=== PATIENT | female | born 1965 | race Caucasian/White ===

== ENCOUNTER → 2016-03-12 | Outpatient (CLI) | payer BC ==
[~2016-03-12] MED LIST: ATIVAN 0.50.5 MG/TAB PO; COLACE 100100 MG/CAP PO; GLUCOPHAGE1000 MG PO; GLUCOTROL 5M5 MG/TAB PO; IRON325 M1 PO; MOTRIN 800800 MG/TAB PO; PERCOCET 325 MG1 TA2 PO; PROTONIX 40MG T40 MG PO; VICTOZA6 MG/ML SQ; ZOCOR 20MG20 MG PO; ZOFRAN 4MG T4 MG/TAB PO
== END ==
LOC: SUN.DIA 10:55
DX: E11.65 Type 2 diabetes mellitus with hyperglycemia (principal); Z79.84 Long term (current) use of oral hypoglycemic drugs; E66.8 Other obesity; Z68.27 Body mass index [BMI] 27.0-27.9, adult; Z71.3 Dietary counseling and surveillance; E78.5 Hyperlipidemia, unspecified

== ENCOUNTER 2016-07-03 12:00 | Emergency (ER) | payer BC ==
[~2016-07-03] VITALS: Ht 157.5 cm; Wt 72.7 kg
[~2016-07-03 12:00] MED LIST changes: -ATIVAN 0.50.5 MG/TAB PO; -GLUCOTROL 5M5 MG/TAB PO; -PROTONIX 40MG T40 MG PO; -VICTOZA6 MG/ML SQ; -ZOCOR 20MG20 MG PO; -ZOFRAN 4MG T4 MG/TAB PO
[2016-07-03 12:02] VITALS: TEMP 97.9
[2016-07-03] MEDS ORDERED: GLUCOTROL 5M5 MG/TAB PO (12:17)
[2016-07-03] MEDS ORDERED: VICTOZA6 MG/ML SQ (12:17)
[2016-07-03] MEDS ORDERED: ZOCOR 20MG20 MG PO (12:18)
[2016-07-03 12:43] LABS: BASO # 0.1 (0.0-0.2); BASO % 0.5 % (0.0-2.0); EOS # 0.1 (0.0-0.7); EOS % 0.7 % (0-4.0); GRAN # 6.8 (1.4-6.5); GRAN % 71.4 % (42.2-75.2); HEMATOCRIT 38.6 % (37.0-47.0); HEMOGLOBIN 12.5 g/dl (12.5-16.0); LYMPH % 20.5 % (20.0-51.0); MEAN CELL VOLUME 87 fl (80.0-100.0); MEAN CORPUSCULAR HEMOGLOBIN 28 pg (27.0-31.0); MEAN CORPUSCULAR HGB CONC 32 g/dl (33.0-37.0); MEAN PLATELET VOLUME 11.1 fl (7.4-10.4); MONO # 0.6 (0.1-0.6); MONO % 6.5 % (1.7-9.3); PLATELET COUNT 285 K/mm3 (130-400); RED BLOOD COUNT 4.45 M/mm3 (4.10-5.30); WHITE BLOOD COUNT 9.5 K/mm3 (4.8-10.8)
[2016-07-03 13:39] LABS: ADJUSTED CALCIUM 8.9 mg/dL (8.4-10.2); ALANINE AMINOTRANSFERASE 29 U/L (9-52); ALBUMIN 4.5 gm/dL (3.5-5.0); ALKALINE PHOSPHATASE 97 U/L (50-136); ANION GAP 14 mmol/L (7-16); BILIRUBIN,TOTAL 0.7 mg/dL (0.0-1.0); BLOOD UREA NITROGEN 10 mg/dL (7-17); CALCIUM 9.3 mg/dL (8.4-10.2); CARBON DIOXIDE 26 mmol/L (22-30); CHLORIDE 98 mmol/L (98-107); CREATININE, serum 0.39 mg/dL (0.52-1.25); GLUCOSE 105 mg/dL (74-106); LIPASE 251 U/L (23-300); POTASSIUM 3.7 mmol/L (3.4-5.0); SODIUM 138 mmol/L (137-145)
[2016-07-03 13:42] LABS: PH 6 (5-8); URINE APPEARANCE Clear; URINE BILIRUBIN Negative (NEGATIVE); URINE BLOOD Negative (NEGATIVE); URINE COLOR Yellow; URINE GLUCOSE Negative (NEGATIVE); URINE KETONE Negative (NEGATIVE); URINE UROBILINOGEN Negative (NEGATIVE)
[2016-07-03 13:53] LABS: URINE WBC 0-2 /hpf
[2016-07-03 13:54] LABS: SQUAMOUS EPITHELIAL 0-2 /hpf
[2016-07-03 13:59] LABS: TROPONIN-I < 0.012 ng/mL (0.000-0.034)
[2016-07-03] MEDS ORDERED: ZOFRAN 4MG T4 MG/TAB PO (14:28)
[2016-07-03] MEDS ORDERED: ATIVAN 0.50.5 MG/TAB PO (14:28)
[2016-07-03] MEDS ORDERED: PROTONIX 40MG T40 MG PO (14:28)
[2016-07-03 15:00] VITALS: BP 124/78
[2016-07-03 15:42] VITALS: PULSE 83
== END 2016-07-03 15:42 | disposition home or self-care (01) ==
LOC: COL.ER 12:00
PROVIDERS: Emergency Medicine
DX: R10.12 Left upper quadrant pain (principal); R11.2 Nausea with vomiting, unspecified; R19.7 Diarrhea, unspecified; R42 Dizziness and giddiness; E11.9 Type 2 diabetes mellitus without complications; Z79.84 Long term (current) use of oral hypoglycemic drugs
CPT/HCPCS: J1170; J2060; J2405; J2550; J7030

== ENCOUNTER → 2016-11-03 | Outpatient (CLI) | payer MEDICAID ==
[~2016-11-03] MED LIST changes: +ATIVAN 0.50.5 MG/TAB PO; +GLUCOTROL 5M5 MG/TAB PO; +PROTONIX 40MG T40 MG PO; +VICTOZA6 MG/ML SQ; +ZOCOR 20MG20 MG PO; +ZOFRAN 4MG T4 MG/TAB PO
== END ==
LOC: MC.RAD 13:19
DX: Z12.31 Encounter for screening mammogram for malignant neoplasm of breast (principal)

== ENCOUNTER 2017-07-16 16:15 | Outpatient (RCR) | payer MEDICAID | END 2017-09-07 | disposition home or self-care (01) | LOC: WSPT | DX: M54.5 Low back pain (principal) ==

== ENCOUNTER → 2017-11-10 | Outpatient (CLI) | payer MEDICAID | LOC: SUN.DIA 12:57 | DX: E11.9 Type 2 diabetes mellitus without complications (principal); E78.5 Hyperlipidemia, unspecified; E66.9 Obesity, unspecified | CPT/HCPCS: G0108 ==

== ENCOUNTER → 2017-12-16 | Outpatient (CLI) | payer MEDICAID | LOC: SUN.DIA 11-24 10:40 | DX: E11.9 Type 2 diabetes mellitus without complications (principal); E78.5 Hyperlipidemia, unspecified; E66.9 Obesity, unspecified | CPT/HCPCS: G0108 ==

== ENCOUNTER → 2017-12-23 | Outpatient (CLI) | payer MEDICAID | LOC: SUN.DIA 15:02 | DX: E11.9 Type 2 diabetes mellitus without complications (principal); E78.5 Hyperlipidemia, unspecified; E66.9 Obesity, unspecified | CPT/HCPCS: G0109 ==

== ENCOUNTER → 2018-03-02 | Outpatient (CLI) | payer MEDICAID | LOC: MC.RAD 16:22 | DX: Z12.31 Encounter for screening mammogram for malignant neoplasm of breast (principal) ==

== ENCOUNTER → 2018-03-17 | Outpatient (CLI) | payer MEDICAID | LOC: SUN.DIA | DX: E11.9 Type 2 diabetes mellitus without complications (principal); E78.5 Hyperlipidemia, unspecified; E66.9 Obesity, unspecified | CPT/HCPCS: G0108 ==

== ENCOUNTER → 2018-06-15 | Outpatient (CLI) | payer MEDICAID | LOC: SUN.DIA 11:21 | DX: E11.9 Type 2 diabetes mellitus without complications (principal); E78.5 Hyperlipidemia, unspecified; E66.9 Obesity, unspecified | CPT/HCPCS: G0108 ==

== ENCOUNTER → 2021-01-02 | Outpatient (CLI) | payer MEDICAID | LOC: MC.RAD 09:09 | DX: Z12.31 Encounter for screening mammogram for malignant neoplasm of breast (principal) ==